=== PATIENT | male | born 1945 | race Caucasian/White ===

== ENCOUNTER 2024-08-01 08:43 | Day surgery (SDC) | payer MEDICARE, OTHER, SELFPAY ==
[2024-08-01] VITALS (12 sets, daily range): BP systolic 148–168; BP diastolic 87–98; BMI 36.8
[2024-08-01 09:12] LABS: Hematocrit 43.4 % (39.0-52.0); Hemoglobin 14.9 g/dL (13.0-18.0); Mean Corp Hgb Conc. 34.3 g/dL (33.0-37.0); Mean Corpuscular Volume 87.3 fL (80.0-94.0); Mean Platelet Volume 9.8 fL (7.4-10.4); Platelet Count 180 10^3/uL (130-400); Red Blood Cell Count 4.97 10^6/uL (4.70-6.10); Red Cell Dist. Width 12.8 % (11.5-14.5); White Blood Cell Count 6.9 10^3/uL (4.8-10.8)
[2024-08-01 09:29] LABS: ALT (SGPT) 28 U/L (0-50); AST (SGOT) 32 U/L (17-59); Albumin 4.6 g/dl (3.5-5.0); Alkaline Phosphatase 64 U/L (38-126); Blood Urea Nitrogen 18 mg/dl (9-20); Calcium 8.7 mg/dl (8.4-10.2); Carbon Dioxide 28 mmol/L (22-30); Chloride 104 mmol/L (98-107); Estimated Creatinine Clearance 89 ml/min; Glucose 101 mg/dl (70-99); Potassium 3.8 mmol/L (3.5-5.1); Sodium 139 mmol/L (135-145); Total Bilirubin 0.9 mg/dl (0.2-1.3); Total Protein 7.2 g/dl (6.3-8.2); eGFR > 60.00
--- NOTE | 2024-08-01 11:41 | ITS.CL.PN ---
[facility] - Procedure Note
Procedure
Procedure Note:
CARDIAC CATHETERIZATION REPORT
Date of Procedure: 08/01/2024
Referring: Dr. Neil Vargas MD
Indication: positive cardiac stress test
PROCEDURE(S)
1. left heart catheterization
2. coronary angiography
ACCESS: 6F right radial artery (closure: radial band)
CATHETERS
1. 6F JR4
2. 6F JL3.5
Moderate Sedation: 15 minutes of moderate sedation was utilized. An independent chief medical officer was present to assist with and help manage the patient's level of consciousness and physiologic status.
Ultrasound Guided Vascular Access (right radial artery): Ultrasound was utilized for vascular access. The vessel was visualized under ultrasound and noted to be patent. An image of the vessel was stored permanently in the patient's medical record.
Under direct ultrasound guidance, vascular access was obtained using a modified Seldinger technique and a 6 [place] sheath was placed.
HEMODYNAMIC DATA
LV 151/2 (EDP 10) mmHg
AO 146/93 (mean 119) mmHg
CORONARY ANGIOGRAPHY
Dominance: Right
LM: large with mild disease
LAD: large vessel giving rise to 2 moderate caliber diagonal branches and wrapping around the apex. There are patent stents in the proximal to mid LAD. The jailed diagonal branches both have mild ostial pinching but ADELE-3 flow.
LCx: Large vessel giving rise to a large branching OM1 and small OM 2. The mid circumflex just distal to the OM1 takeoff has a focal moderate stenosis. There is otherwise mild disease. There is ADELE-3 flow in the small OM 3.
RCA: Large vessel giving rise to a moderate caliber RPDA, small RPL1, large RPL2, and small RPL3. There is mild nonobstructive disease and patent stents in the mid RCA.
RADIATION: dose for 31 mGy; DAP 31.1 Gy*cm2; fluoroscopy time 3.4 min
CONCLUSIONS
1. nonobstructive coronary artery disease in a right dominant system with patent stents in the RCA and LAD
2. normal LV filling pressure and no aortic stenosis on hemodynamic pullback
RECOMMENDATIONS
1. expectant management after cardiac catheterization via right radial approach
2. aggressive secondary management of coronary artery disease
Copy to: Dr. Neil Vargas MD (supervisor sewer maintenance); Dr. Hilario Yang MD (PCP)
Signed: Stephen Easton MD, PhD
== END 2024-08-01 13:15 | disposition home or self-care (01) ==
LOC: CATH 08:43
PROVIDERS: ATTENDING PHYSICIAN Student in an Organized Health Care Education/Training Program; FAMILY PHYSICIAN Internal Medicine; OTHER PHYSICIAN Internal Medicine Cardiovascular Disease
DX: I25.10 Atherosclerotic heart disease of native coronary artery without angina pectoris (principal); Z95.5 Presence of coronary angioplasty implant and graft; I48.0 Paroxysmal atrial fibrillation; I10 Essential (primary) hypertension; E78.5 Hyperlipidemia, unspecified; E03.9 Hypothyroidism, unspecified; Z87.891 Personal history of nicotine dependence; Z79.82 Long term (current) use of aspirin; Z79.01 Long term (current) use of anticoagulants
CPT/HCPCS: 99152; C1894; 76937; 80053; 85027; 93458; Q9967

== ENCOUNTER 2025-02-04 01:07 | Emergency (ER) | payer MEDICARE, OTHER, SELFPAY ==
[2025-02-04 01:10] VITALS: BP 165/87
--- NOTE | 2025-02-04 01:30 | ED.GENMED ---
History of Present Illness
General
Chief Complaint: Abdominal Pain
Source: patient
Exam Limitations: none
Time Seen by Provider: 02/04/25 01:16
Nursing documentation reviewed up to this point in time: agreed with
History of Present Illness
History of Present Illness:
This is a 79-year-old male with a past medical history of coronary artery disease, hypothyroidism Synthroid, PAF on eliquis, hyperlipidemia, who presents emergency department today with concerns of right sided abdominal pain and periumbilical pain
starting around 4 hours ago. This started with nausea and vomiting as well as a few episodes of diarrhea. He has never had pain like this before. He denies any radiation of the pain into the chest or back. He denies any history of
intra-abdominal surgeries. He denies any shortness of breath. He denies any fevers or chills. He denies any sick contacts. He denies any burning with urination or blood in his urine. He denies any rectal bleeding or dark tarry stools. He
denies any hemoptysis. He denies any recent travel outside the country. He denies any recent antibiotic use.
Review of Systems
Review of Systems
All Other Systems: ROS reviewed and negative except as documented in HPI and ROS
Phy Exam
Physical Exam
Physical Exam:
General: Patient is well appearing and in no acute distress; non-toxic
Skin: Warm and dry, no rashes or lesions
Head: Normocephalic, atraumatic
Eyes: Sclera non-icteric. EOMs intact.
Cardiac: Regular rate and rhythm, no murmurs, no tenderness to palpation of the external chest wall
Pulm: Normal respiratory effort, no wheezes, rales, or rhonchi
Abdomen: Diffuse upper abdominal tenderness to palpation with guarding, R>L, no periumbilical pain, no tenderness
Neuro: CN II-XII intact, no focal neurologic deficits.
Psychiatric: Appropriate mood and affect.
Course
Orders/Labs/Results
Orders:
Orders
02/04/25 01:27
Complete Blood Count/With Diff Urgent
Comprehensive Metabolic Panel Urgent
Lipase Urgent
02/04/25 01:48
Lactated Ringers [Lr] 500 ml IV BOLUS
Morphine Sulfate 4 mg IV NOW STA
Ondansetron Injectable [Zofran] 4 mg IV NOW STA
02/04/25 01:54
CT Abd/pelvis W Iv Cont Urgent
Comment:
Reason For Exam: diffuse upper abdominal pain
02/04/25 02:04
Electrocardiogram (*1) Urgent
Reason for Study: Abdominal Pain
02/04/25 02:43
Urinalysis Reflex To Culture Urgent
Date Specimen was Collected: 02/04/25
Time Specimen was Collected: 02:39
Urine Microscopic Reflex Cult Urgent
Abnormal Lab Results
02/04/25 02/04/25
01:27 02:43
WBC 11.9 H 10^3/uL
(4.8-10.8)
MPV 10.5 H fL
(7.4-10.4)
Absolute Neuts (auto) 9.6 H 10^3/uL
(1.4-6.5)
Neutrophils % 80.7 H %
(42.2-75.2)
Lymphocytes % 12.5 L %
(20.5-51.1)
Chloride 112 H mmol/L
(98-107)
Carbon Dioxide 21 L mmol/L
(22-30)
BUN 23 H mg/dl
(9-20)
Glucose 186 H mg/dl
(70-99)
Ur Occult Blood Reflex 1+ A
(Negative)
Urine RBC 3-6 A /HPF
(0-2)
Urine Glucose 1+ A
(Negative)
02/04/25 01:27
02/04/25 01:27
Vital Signs
Initial and Last Documented VS:
Initial Vital Signs
Temp Pulse Resp BP Pulse Ox
98.5 F 84 26 165/87 97
02/04/25 01:10 02/04/25 01:10 02/04/25 01:10 02/04/25 01:02/04/25 01:10
Last Documented Vital Signs
Temp Pulse Resp BP Pulse Ox
98.5 F 84 26 165/87 97
02/04/25 01:10 02/04/25 01:10 02/04/25 01:10 02/04/25 01:10 02/04/25 01:30
MDM/Problems Addressed
Differential Diagnosis Includes:
ddx include gastritis,appendicitis, GERD, pancreatitis, biliary colic, diverticulitis, nephrolithiasis
MDM/Problems Addressed:
This is a 79-year-old male with a past medical history of coronary artery disease, hypothyroidism Synthroid, PAF on eliquis, hyperlipidemia, who presents emergency department today with concerns of right sided abdominal pain and periumbilical pain
starting around 4 hours ago. He has associated nausea and vomiting and diarrhea. He has no fevers or chills. On exam he is well-appearing in no acute distress. He has generalized upper abdominal tenderness to palpation more so on the left side
than the right but no periumbilical tenderness, no right lower quadrant tenderness. His blood work is unremarkable. Slightly elevated BUN however patient was given IV fluids and he has had no evidence of GI bleeding. Urinalysis is not concerning
for infection. His CAT scan reveals midline ventral hernia containing fat and gastric vessels with mild edema but no evidence for vascular congestion or aneurysm. In addition, patient has no tenderness around the ventral hernia. There is also
evidence of gallstones but no inflammatory changes and unremarkable appearance of aorta. He also went for ECG which showed normal sinus rhythm with no ischemic changes. Suspect his pain was probably related to the vomiting he had or pain related
to spasm of the bowel in the setting of diarrhea. Patient had a lot of improvement in symptoms with fluids, morphine, and Zofran. Patient requesting to go home. Daughter requesting Bentyl to help with his symptoms. This is reasonable plan.
James sent to his pharmacy. Did offer Zofran but patient states that he has at home. Patient will continue to take omeprazole. Encouraged hydration. GERD follow-up with PCP discussed strict return precautions. Patient stable for discharge.
Chronic conditions affecting care:
Hypothyroidism on Synthroid, PAF on Eliquis, coronary artery disease, BPH, dyslipidemia, sleep apnea
*Pulse Oximetry
SaO2: 97
Oxygen Mode of Delivery: Room air
Patient hypoxic: no
*EKG
Interpreted by ED Provider?: Yes
EKG Intrepretation Date: 02/04/25
Interpretation: normal
Comparison EKG: no changes
Heart Rate: 84
Rate: normal
Rhythm: sinus
[employer]: normal axis
Interval: normal interval
QRS Pattern: normal QRS
Ischemia: no ischemia
*Critical Care Note
Total Time (30-74mins, 75-104mins- exclusive of procedures): Not Applicable
Data Reviewed
Review of Other/Old Records Reveals: Records (Reviewed catheterization lab report from 08/01/2024 patient seen for coronary artery catheterization had found to have nonobstructive coronary artery disease in the right dominant system with patent
stents in the RCA and LAD with normal LV filling pressure and no aortic stenosis with recommendations ) and Other (Reviewed July 02, 2024 external note, patient was noted to have hypertension that is controlled on current regimen)
Source: patient, records and family
Patient Management
Escalation/DeEscalation of care consider admission/obs:
Admit not indicated, patient stable for discharge
Update Note
Update Note:
3:00am-- Patient notes that his pain is well controlled and his nausea and vomiting has subsided. Awaiting results of the CT scan. Patient requesting to go home.
ED Attending Note
-
Portions of this chart may have been created with voice recognition software.� Occasional wrong word or��sound alike� substitutions may have occurred due to the inherent limitations of voice recognition software.
Discharge Plan
Departure
Patient Disposition: Home (Routine Discharge)
Date of Disposition: 02/04/25
Time of Disposition: 04:00
Patient with high blood pressure during this ER visit?: Yes
Condition: Good
Discharge Problem:
Gastroenteritis, Abdominal pain
Instructions: Abdominal Pain, BLOOD PRESSURE
Prescriptions:
New
dicyclomine 20 mg tablet
20 mg PO TID Qty: 14 0RF
No Action
celecoxib [Celebrex] 200 mg Capsule
200 mg PO BID PRN (Reason: pain)
sildenafil 50 mg Tablet
50 mg PO HS
cyanocobalamin (vitamin B-12) [Vitamin B-12] 1,000 mcg Tablet
1,000 mcg PO DAILY
tamsulosin [Flomax] 0.4 mg Capsule
0.4 mg PO HS
levothyroxine 50 mcg Tablet
50 mcg PO DAILY
aspirin 81 mg Tablet,Chewable
81 mg PO DAILY
rosuvastatin [Crestor] 10 mg Tablet
10 mg PO Q48H
solifenacin [Vesicare] 5 mg Tablet
5 mg PO HS
amlodipine-benazepril 5-40 mg Capsule
1 cap PO DAILY
cholecalciferol (vitamin D3) 25 mcg (1,000 unit) Tablet
25 mcg PO DAILY
Eliquis 5 mg Tablet
5 mg PO BID
PreserVision AREDS-2 250-90-40-1 mg Capsule
1 tab PO BID
Referrals:
UNKNOWN - PT DOES,NOT KNOW [Family Provider]
Activity Restrictions/Additional Instructions:
You can try taking Maalox [id number] for your symptoms. You have Zofran at home. Dicyclomine has been sent to your pharmacy. You can take 1 tablet up to 3 times daily as needed for abdominal discomfort.
Please follow-up with your primary care provider.
PLEASE RETURN EMERGENCY DEPARTMENT SHOULD YOU DEVELOP INTRACTABLE NAUSEA OR VOMITING, FEVERS OR CHILLS, CHEST PAIN, SHORTNESS OF BREATH, INABILITY TOLERATE ORAL INTAKE, RECTAL BLEEDING, DARK TARRY STOOLS, VOMITING BLOOD, BURNING WITH URINATION, OR
ANY OTHER SIGNS OR SYMPTOMS WORRISOME TO YOU.
Interventions
Interventions:
*Risk Screen - Suicide Last Done: 02/04/25 01:10
*General Assessment Last Done: 02/04/25 02:35
*Neglect/Abuse Screening Last Done: 02/04/25 01:10
*ED- Fall Risk Assessment Last Done: 02/04/25 02:35
*ED COVID-19 Vaccine History Last Done: 02/04/25 02:35
*Nursing Disposition Last Done: 02/04/25 04:03
QK-Vcwlpe-Xktdqpaivy Assessment Last Done: 02/04/25 01:29
Discharge Date and Time
Print Language: [id number]
[2025-02-04 01:41] LABS: Hematocrit 42.1 % (39.0-52.0); Hemoglobin 14.4 g/dL (13.0-18.0); Mean Corp Hgb Conc. 34.2 g/dL (33.0-37.0); Mean Corpuscular Volume 88.1 fL (80.0-94.0); Nucleated Red Blood Cells % 0 % (-); Platelet Count 185 10^3/uL (130-400); Red Cell Dist. Width 12.7 % (11.5-14.5)
[2025-02-04] MEDS: LR 500 IV (01:51)
[2025-02-04] MEDS: ZOFRAN 4 MG IV (01:52)
[2025-02-04] MEDS: MORPHINE SULFATE 4 MG IV (01:52)
[2025-02-04 01:56] LABS: ALT (SGPT) 28 U/L (0-50); AST (SGOT) 30 U/L (17-59); Albumin 4.5 g/dl (3.5-5.0); Alkaline Phosphatase 65 U/L (38-126); Blood Urea Nitrogen 23 mg/dl (9-20); Calcium 8.9 mg/dl (8.4-10.2); Carbon Dioxide 21 mmol/L (22-30); Chloride 112 mmol/L (98-107); Glucose 186 mg/dl (70-99); Lipase 225 U/L (23-300); Potassium 3.8 mmol/L (3.5-5.1); Sodium 139 mmol/L (135-145); Total Protein 7.1 g/dl (6.3-8.2); eGFR > 60.00
[2025-02-04 02:56] LABS: Urine Character Clear (Clear)
[2025-02-04 03:06] LABS: Urine Squamous Cell None seen /LPF (Few); Urine White Cell 0-2 /HPF (0-5)
[2025-02-04 04:03] VITALS: BP 140/82
== END 2025-02-04 04:10 | disposition home or self-care (01) ==
LOC: EMR 01:07
PROVIDERS: Physician Assistant; EMERGENCY PHYSICIAN Emergency Medicine
DX: K52.9 Noninfective gastroenteritis and colitis, unspecified (principal); R10.9 Unspecified abdominal pain; I25.10 Atherosclerotic heart disease of native coronary artery without angina pectoris; E03.9 Hypothyroidism, unspecified; E78.00 Pure hypercholesterolemia, unspecified; G47.30 Sleep apnea, unspecified; I48.0 Paroxysmal atrial fibrillation; Z79.01 Long term (current) use of anticoagulants; Z79.890 Hormone replacement therapy; Z96.642 Presence of left artificial hip joint
CPT/HCPCS: 99284; 96374; 96375; 96361; 74177; 80053; 81003; 81015; 83690; 85025; 93005; Q9967